=== PATIENT | female | born 2000 | race Caucasian/White ===

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

== ENCOUNTER 2023-01-06 07:36 | Inpatient (IN) ==
[2023-01-06] MEDS ORDERED: OXYTOCIN 30 UNITS/NSS 30 UNITS/500 ML BAG IV PRN ×3 (07:43→20:18)
[2023-01-06] MEDS ORDERED: LIDOCAINE 1% LOCAL 20 ML VIAL INFIL PRN (07:43)
[2023-01-06 08:26] LABS: Hematocrit (blood only) 38.4 % (37.0-47.0); Hemoglobin 12.9 g/dl (12.0-16.0); Mean Corpuscular Hemoglobin 28.6 pg (25.0-34.0); Mean Corpuscular Hgb Conc 33.6 g/dL (32.0-36.0); Mean Corpuscular Volume 85.1 fL (80.0-100.0); Mean Platelet Volume 9.5 fL (9.4-12.4); Platelet Count 250 K/uL (130-400); RDW Coefficient of Variation 13.3 % (11.5-14.5); RDW Standard Deviation 41.5 fL (36.4-46.3); Red Blood Count 4.51 M/uL (4.20-5.40); White Blood Count 12.66 K/ul (4.8-10.8)
[2023-01-06] MEDS: LACTATED RINGER'S 1,000 ML IV PRN ×3 (08:45→16:11)
--- NOTE | 2023-01-06 09:01 | History & Physical Report ---
"Date of Service January 06, 2023 Assessment & Plan (1) Encounter for induction of labor: Plan: pitocin arom when appropriate monitor tracing, currently cat 1 Admission and Anticipated Discharge Date Admission Date: January 06, 2023 History of Present Illness Chief Complaint: IOL Primary Care Provider: Fabi Sy DO 22 yo at 39w1d admitted for IOL for post-dates. Denies GOMES, CP, SOB, N/V/D, LE pain. GBS neg, RH-, Rhogam given, +fm, -ctx Allergies Allergy/AdvReac Type Severity Reaction Status Date / Time [facility] [[facility] AdvReac Intermediate Tachycardia Verified 01/05/23 10:20 Home Medications Medication Instructions Recorded Confirmed Type cholecalciferol (vitamin D3) 50 1,000 unit PO DAILY 03/21/22 01/05/23 History mcg (2,000 unit) capsule clindamycin phosphate 1 % topical 1 applic topical DAILY #50 grams 06/22/22 01/05/23 Rx foam ferrous sulfate 325 mg (65 mg 325 mg PO DAILY 07/15/22 01/05/23 History iron) tablet [id number] fum 28 mg 1 cap PO DAILY #90 caps 08/04/22 01/05/23 Rx iron-folic acid 1 mg-omg3 200 mg capsule lamotrigine 100 mg tablet 50 mg (1/2 x 100 mg) PO BID 30 08/05/22 01/05/23 Rx days #30 tabs albuterol sulfate 90 mcg/actuation 2 puff inhalation QID PRN 08/31/22 01/05/23 Rx aerosol inhaler (Ventolin HFA) shortness of breath or wheezing #6.7 grams citalopram 20 mg tablet 20 mg PO DAILY #90 tabs 12/20/22 01/05/23 Rx Patient History Medical History Ovarian cyst Depression Amenorrhea Migraine Vitamin D deficiency History of chicken pox Reactive airway disease Anxiety Surgical History No pertinent past surgical history Family History Mother Anxiety Depression Thyroid cancer Sister Depression Seizures Grandfather Prostate cancer Denies family history of Ovarian cancer Myocardial infarction Breast cancer Colorectal cancer Social History Smoking Status: Never smoker Second Hand Exposure: No; Do You Dip or Chew Tobacco: No; Hx Alcohol Use: No Hx Substance Use: No Preferred Language: Japanese Communication Ability: Effective Visual Impairment: No Limitations Hearing Ability: Normal Aircraft Electrical Systems Specialist Required: No Beliefs That Will Affect Care: None marital status: marital status details: Alex Ruff ( 20) [phone] Current Living Situation: Spouse Current Living Situation Comment: [facility] [place] current occupational status: employed current occupation: [employer] How many Children do You have: 0 Other Information That Helps Us Care for You: No Feels Safe at Home: Yes Safety Concerns: Feels Safe At This Time Childhood Exposure to Second-Hand Smoke: No Diet: regular caffeine: Yes during the past year weight has: increased > 10 lbs Dental Care, Regularly: Yes Physical Activity Frequency: Does not Exercise Seatbelt Use: always Sunscreen Use: Yes Assistive Devices: Glasses Review of Systems reviewed, per HPI Physical Exam Physical Exam: General: patient resting comfortably, NAD, non-toxic in appearance, answers questions appropriately. Skin: warm, dry, intact HEENT: NC/AT, anicteric sclera, conjunctiva without injection, moist mucus membranes Heart: +S1/S2, regular, no m/r/g Lungs: equal air entry bilaterally, no rales/rhonchi/wheezes Abd: +BS, soft, NT/ND, gravid uterus Cervical: 4|70|-2| Ext: warm, no clubbing/cyanosis or edema Neuro: speech intact, no facial droop, moving all extremities on command. : FHR baseline 135, moderate variability, accelerations present, decelerations absent Results & Data Vital Signs (Past 12 Hours) Vital Signs Temp Pulse Resp BP 01/06/23 07:45 18 01/06/23 07:45 36.6 C 18 01/06/23 07:44 102 H 124/60 Supervising Physician Co-Signing Physician Notes Resident Physician Supervision Note: I interviewed and examined the patient. Discussed with Dr. Seals and agree with findings and plan as documented in the note. Any exceptions or clarifications are listed here: [None] Documented By: Megan Peterson MD, FACOG Resident Activity Tracking Resident Involvement: Resident Care Provided Care Provided: Adult [facility] Medicine"
[2023-01-06] MEDS ORDERED: LIDOCAINE 2%/EPINEPHRINE 1:200,000 20 ML PF ONE (11:19)
[2023-01-06] MEDS ORDERED: BUPIVACAINE 0.25% PF 30 ML VIAL EPI STA (11:19)
[2023-01-06] MEDS ORDERED: BUPIVACAINE 0.25% PF 30 ML VIAL ONE (11:19)
[2023-01-06] MEDS ORDERED: NALBUPHINE HCL 5 MG in SYRINGE 0 ML IV PRN (11:19)
[2023-01-06] MEDS ORDERED: fentANYL 2 MCG/ML BUPIVacaine 0.125%-NSS 100ML BAG EPI PRN (11:19)
[2023-01-06] MEDS ORDERED: NALOXONE HCL 1 MG in SODIUM CHLORIDE 0.9% 1,000 ML IV PRN (11:19)
[2023-01-06] MEDS ORDERED: fentaNYL citrate PF 100 MCG/2 ML VIAL EPI PRN (11:19)
[2023-01-06] MEDS ORDERED: fentaNYL citrate PF 100 MCG/2 ML VIAL ONE (11:19)
[2023-01-06] MEDS ORDERED: ePHEDrine sulfate 50 MG/ML AMP ONE (11:19)
[2023-01-06] MEDS ORDERED: SODIUM CHLORIDE 0.9% PF INJ 10 ML VIAL ONE (11:19)
[2023-01-06] MEDS ORDERED: fentaNYL citrate PF 100 MCG/2 ML VIAL EPI STA (11:19)
[2023-01-06] MEDS ORDERED: LIDOCAINE 2%/EPINEPHRINE 1:200,000 20 ML PF EPI STA (11:19)
[2023-01-06] MEDS ORDERED: SODIUM CHLORIDE 0.9% PF INJ 10 ML VIAL EPI PRN (11:19)
[2023-01-06] MEDS ORDERED: ePHEDrine sulfate 50 MG/ML AMP IV PRN (11:19)
[2023-01-06] MEDS ORDERED: ROPIVACAINE 0.5% PF 5 MG/ML 20 ML VIAL EPI PRN (11:19)
[2023-01-06] MEDS ORDERED: BUPIVACAINE 0.25% PF 30 ML VIAL EPI PRN (11:19)
[2023-01-06] MEDS ORDERED: diphenhydrAMINE 50 MG/ML VIAL IV PRN (11:19)
[2023-01-06] MEDS ORDERED: SODIUM CHLORIDE 0.9% PF INJ 10 ML VIAL EPI STA (11:19)
[2023-01-06] MEDS ORDERED: fentANYL 2 MCG/ML BUPIVacaine 0.125%-NSS 100ML BAG ONE (11:19)
[2023-01-06] MEDS ORDERED: LIDOCAINE 2% MPF LOCAL 5 ML VIAL EPI PRN (11:19)
[2023-01-06] MEDS ORDERED: NALOXONE HCL 0.4 MG/1 ML VIAL/CARP IV PRN (11:19)
--- NOTE | 2023-01-06 11:21 | Anesthesiology Consultation ---
Date of Service January 06, 2023 Assessment & Plan (1) Encounter for pre-operative examination: Chart Review Chart Review: Patient NOT seen in Pre Admission Testing and Acceptable Risk for Labor Epidural Consults Requested none History Height/Weight Height: 5 ft 7 in Weight: 140.16 kg Allergies Allergy/AdvReac Type Severity Reaction Status Date / Time rizatriptan [From [facility]] AdvReac Intermediate Tachycardia Verified 01/05/23 10:20 Medications Home Medications Medication Instructions Recorded Confirmed Last Taken cholecalciferol (vitamin D3) 50 1,000 unit PO DAILY 03/21/22 01/06/23 01/06/23 06:00 mcg (2,000 unit) capsule clindamycin phosphate 1 % topical 1 applic topical DAILY #50 grams 06/22/22 01/06/23 01/05/23 22:00 foam ferrous sulfate 325 mg (65 mg 325 mg PO DAILY 07/15/22 01/06/23 01/06/23 06:00 iron) tablet [id number] fum 28 mg 1 cap PO DAILY #90 caps 08/04/22 01/06/23 01/06/23 06:00 iron-folic acid 1 mg-omg3 200 mg capsule lamotrigine 100 mg tablet 50 mg (1/2 x 100 mg) PO BID 30 08/05/22 01/06/23 01/06/23 06:00 days #30 tabs albuterol sulfate 90 mcg/actuation 2 puff inhalation QID PRN 08/31/22 01/06/23 11/04/22 aerosol inhaler (Ventolin HFA) shortness of breath or wheezing #6.7 grams citalopram 20 mg tablet 20 mg PO DAILY #90 tabs 12/20/22 01/06/23 01/06/23 06:00 Active Medications Generic Name Dose Route Start Last Admin Trade Name Freq PRN Reason Stop Dose Admin Oxytocin 30 units in 500 mls @ 6 mls/hr 01/06/23 07:44 01/06/23 10:44 Pitocin IV 01/08/23 07:43 0.36 units/hr .Q24H PRN 6 mls/hr Labor Induction/Augmentation Titration Protocol 0.36 UNITS/HR Lactated Ringer's 1,000 mls @ 125 mls/hr 01/06/23 07:43 01/06/23 11:12 Lr IV 01/08/23 07:42 999 mls/hr .Q8H PRN Infusion L&D Protocol Protocol Past Medical History Medical History Ovarian cyst Depression Amenorrhea Migraine Vitamin D deficiency History of chicken pox Reactive airway disease Anxiety Past Family History Family History Mother Anxiety Depression Thyroid cancer Sister Depression Seizures Grandfather Prostate cancer Denies family history of Ovarian cancer Myocardial infarction Breast cancer Colorectal cancer Past Surgical History Surgical History No pertinent past surgical history Social History Smoking Status: Never smoker Do You Dip or Chew Tobacco: No Hx Alcohol Use: No Hx Substance Use: No Physical Exam Vital Signs Last Vital Signs Temp 97.9 F 01/06/23 08:12 Pulse 86 01/06/23 11:10 Resp 18 01/06/23 10:00 BP 128/67 01/06/23 11:10 O2 Del Method Room Air 01/06/23 08:12 Testing Laboratory Results 01/06/23 08:06 Blood Type B Negative 01/06/23 08:06 Antibody Screen NEGATIVE 01/06/23 08:06
[2023-01-06] MEDS ORDERED: TERBUTALINE SULFATE 1 MG/ML VIAL ONE (12:20)
--- NOTE | 2023-01-06 12:37 | Labor Progress Brief Note ---
Date of Service January 06, 2023 Subjective CTSP by nursing, covering briefly for Dr. Mohan. patient had recent arom and epidural. Patient put back on the monitor after epidural at noon and decel started at 12:10. Nursing had already gone through position change, oxygen and position change by the time i got to the room. The baby was trying to recover by the time I returned to the room. Assessment & Plan (1) Encounter for induction of labor: Plan decel likely secondary to either epidural effect or potentially tachysystole. Has now resolved and reassuring. Plan expectant management for now. Admission and Anticipated Discharge Date Admission Date: January 06, 2023 Physical Exam Physical Exam: nursing checked and 6cm. toco--very difficult tracing secondary to body habitus. efm--Baseline was 130s, was having small accels, then deceled to probably 70-80 but difficult tracing gave terb now 130s with mod variability, small accel, mod variability Results & Data Vital Signs (Past 12 Hours) Vital Signs Temp Pulse Resp BP Pulse Ox O2 Del Method 01/06/23 12:29 86 119/61 01/06/23 12:28 91 H 100 01/06/23 12:27 86 112/59 L 01/06/23 12:25 80 108/55 L 01/06/23 12:23 100 01/06/23 12:23 85 01/06/23 12:23 81 115/62 01/06/23 12:21 84 118/67 01/06/23 12:18 81 120/66 01/06/23 12:17 85 98 01/06/23 12:16 89 84 L 01/06/23 12:15 100 H 188/135 H 01/06/23 12:12 82 96 01/06/23 12:11 75 101/58 L 01/06/23 12:10 82 92 01/06/23 12:09 80 104/62 01/06/23 12:07 99 01/06/23 12:07 79 01/06/23 12:07 77 115/53 L 01/06/23 12:05 81 104/58 L 01/06/23 12:03 77 93/60 L 01/06/23 12:02 80 99 01/06/23 12:00 81 101/56 L 01/06/23 11:59 83 01/06/23 11:59 90 101/51 L 86 L 01/06/23 11:57 87 94 01/06/23 11:53 86 92 01/06/23 11:52 86 96 01/06/23 11:51 85 110/51 L 01/06/23 11:49 91 H 126/59 L 01/06/23 11:47 99 01/06/23 11:47 108 H 01/06/23 11:47 100 H 140/63 92 01/06/23 11:45 96 H 155/73 H 01/06/23 11:43 109 H 149/79 H 01/06/23 11:42 123 H 97 01/06/23 11:41 108 H 150/79 H 01/06/23 11:40 104 H 91 01/06/23 11:39 116 H 145/85 H 01/06/23 11:37 100 01/06/23 11:37 112 H 01/06/23 11:37 111 H 142/87 H 01/06/23 11:35 100 H 139/79 01/06/23 11:32 101 H 89 L 01/06/23 11:25 87 136/77 01/06/23 11:10 86 128/67 01/06/23 10:56 82 132/65 01/06/23 10:41 88 123/64 01/06/23 10:35 91 H 119/65 01/06/23 10:12 93 H 127/68 01/06/23 10:00 18 01/06/23 10:00 18 01/06/23 09:26 97 H 136/74 01/06/23 08:12 36.6 C 18 Room Air 01/06/23 07:45 18 01/06/23 07:45 36.6 C 18 01/06/23 07:44 102 H 124/60 Coding Level of Care Code None Diagnoses Encounter for induction of labor Z34.90
[2023-01-06] MEDS ORDERED: ALBUTEROL HFA 8 GM INHALER INH PRN (20:16)
[2023-01-06] MEDS ORDERED: DIPHTHERIA/TETANUS/PERTUSSIS Vaccine (Tdap, Age 7+yrs) 0.5mL SYR/VL IM ONE (20:18)
[2023-01-06] MEDS ORDERED: HYDROCORTISONE ACETATE 25 MG SUPP PR PRN (20:18)
[2023-01-06] MEDS ORDERED: BENZOCAINE 20% SPRY 85 APPLN/85 GM CAN EXT PRN (20:18)
[2023-01-06] MEDS ORDERED: oxyCODONE/ACETAMINOPHEN 5mg/325mg TAB PO PRN (20:18)
[2023-01-06] MEDS ORDERED: bisacodyL 10 MG SUPP PR PRN (20:18)
--- NOTE | 2023-01-06 20:24 | Delivery Summary ---
Vaginal Delivery Summary Date of Service January 06, 2023 Vaginal Delivery Summary and 2nd Degree LAC Patient is a 22-year-old 1 P0 female with an EDC of 01/12/2023 who presents for elective induction of labor for obesity at 39+ weeks. Pitocin induction was begun per protocol and membranes were then ruptured for clear fluid. She received effective epidural analgesia. She progressed to full dilation with the urge to push. She pushed effectively over intact perineum for delivery of a viable female . There was a loose nuchal cord which reduced spontaneously after delivery of the head. The rest the delivered easily and was placed on the mother's abdomen for further attention and drying. The cord was somewhat short but we were able to wait 1 minute before clamping and cutting the cord. The was vigorous after initial stimulation. After cor d blood was obtained the placenta was expressed intact with a three-vessel cord. bleeding was controlled with dilute Pitocin and fundal massage. A second-degree perineal laceration was repaired with 3-0 chromic in the usual fashion. Estimated blood loss is 200 cc. Mother and were doing well after delivery. [facility] Vaginal Delivery Charge Delivery Type Details: and 2nd Degree LAC
--- NOTE | 2023-01-06 21:22 | Anesthesia Procedure Note ---
Date of Service January 06, 2023 Anesthesia Post Epidural Note Vital Signs Vital Signs: Temp Pulse Resp BP Pulse Ox O2 Del Method 98.2 F 85 20 114/57 L 94 Room Air 01/06/23 17:30 01/06/23 21:15 01/06/23 18:30 01/06/23 21:15 01/06/23 19:27 01/06/23 08:12 Notes Mental Status: alert / awake / arousable and participated in evaluation Nausea / Vomiting: adequately controlled Pain: adequately controlled Airway Patency, RR, SpO2: stable & adequate BP & HR: stable & adequate Hydration State: stable & adequate Neuraxial Anesthesia: was administered and sensory block is resolving Anesthetic Complications: no major complications apparent and Pt Satisfied with anesthetic care Epidural: Removed without complications and With tip intact
[2023-01-06] MEDS: IBUPROFEN 600 MG TAB PO PRN (21:23)
[2023-01-07] MEDS: DOCUSATE SODIUM 100 MG CAP PO SCH ×3 (00:08→20:13)
[2023-01-07] MEDS: lamoTRIgine 25 MG TAB PO SCH ×3 (00:08→20:18)
[2023-01-07] MEDS: IBUPROFEN 600 MG TAB PO PRN ×4 (04:50→18:30)
[2023-01-07 06:13] LABS: Hematocrit (blood only) 33.4 % (37.0-47.0); Hemoglobin 11.3 g/dl (12.0-16.0); Mean Corpuscular Hemoglobin 29.3 pg (25.0-34.0); Mean Corpuscular Hgb Conc 33.8 g/dL (32.0-36.0); Mean Corpuscular Volume 86.5 fL (80.0-100.0); Mean Platelet Volume 9.7 fL (9.4-12.4); Platelet Count 213 K/uL (130-400); RDW Coefficient of Variation 13.5 % (11.5-14.5); RDW Standard Deviation 42.1 fL (36.4-46.3); Red Blood Count 3.86 M/uL (4.20-5.40); White Blood Count 14.12 K/ul (4.8-10.8)
--- NOTE | 2023-01-07 06:46 | Obstetrical Progress Note ---
Date of Service January 07, 2023 Assessment & Plan (1) care following vaginal delivery: Plan Doing well Encourage ambulation Pain control Dc tomorrow Admission and Anticipated Discharge Date Admission Date: January 06, 2023 Supervising Physician Co-Signing Physician Notes Resident Physician Supervision Note: I interviewed and examined the patient. Discussed with Dr. Seals and agree with findings and plan as documented in the note. Any exceptions or clarifications are listed here: [None] Documented By: Megan Peterson MD, FACOG Subjective 22 yo post day 1 s/p Ambulation: ambulating normally Voiding: no voiding problems Passing Gas:: Yes Diet Tolerance:: regular diet Lochia:: Small Feeding Type:: breast feeding Current Pain Level: moderate Resting comfortably this AM in NAD. Denies GOMES, CP, SOB, N/V/D, LE pain/swelling. Review of Systems Review of Systems: reviewed, per HPI Physical Exam Physical Exam: General: patient resting comfortably, NAD, non-toxic in appearance, answers questions appropriately. Skin: warm, dry, intact HEENT: NC/AT, anicteric sclera, conjunctiva without injection, moist mucus membranes. Heart: +S1/S2, regular, no m/r/g Lungs: equal air entry bilaterally, no rales/rhonchi/wheezes Abd: +BS, soft, NT/ND, uterine fundus firm at umbilicus Ext: warm, no clubbing/cyanosis or edema, Danny's neg. Neuro: speech intact, no facial droop, moving all extremities on command. Results & Data Vital Signs (Past 12 Hours) Vital Signs Temp Pulse Pulse Resp BP BP Pulse Ox 01/07/23 04:40 36.7 C 106 H 18 135/74 99 01/07/23 01:30 36.6 C 94 H 20 103/65 98 01/06/23 22:46 117 H 103/49 L 01/06/23 22:30 118/55 L 01/06/23 22:15 100 H 125/61 01/06/23 22:00 99 H 127/61 01/06/23 21:45 104 H 127/59 L 01/06/23 21:30 103 H 117/56 L 01/06/23 21:15 85 114/57 L 01/06/23 21:00 101 H 118/66 01/06/23 20:45 93 H 115/58 L 01/06/23 20:30 90 120/60 01/06/23 20:15 94 H 126/67 01/06/23 20:00 93 H 128/63 01/06/23 19:47 100 H 131/62 01/06/23 19:46 107 H 166/118 H 01/06/23 19:27 146 H 94 01/06/23 19:25 95 H 100 01/06/23 19:22 107 H 86 L 01/06/23 19:20 107 H 98 01/06/23 19:16 110 H 145/64 H 89 L 01/06/23 19:15 96 H 99 01/06/23 19:10 100 H 100 01/06/23 19:09 108 H 93 01/06/23 19:05 97 H 99 01/06/23 19:01 95 H 131/82 01/06/23 19:00 86 99 01/06/23 18:55 96 H 99 01/06/23 18:50 94 H 97 01/06/23 18:46 88 144/80 H 01/06/23 18:45 90 100 O2 Del Method 01/07/23 04:40 Room Air 01/07/23 01:30 Room Air 01/06/23 22:46 01/06/23 22:30 01/06/23 22:15 01/06/23 22:00 01/06/23 21:45 01/06/23 21:30 01/06/23 21:15 01/06/23 21:00 01/06/23 20:45 01/06/23 20:30 01/06/23 20:15 01/06/23 20:00 01/06/23 19:47 01/06/23 19:46 01/06/23 19:27 01/06/23 19:25 01/06/23 19:22 01/06/23 19:20 01/06/23 19:16 01/06/23 19:15 01/06/23 19:10 01/06/23 19:09 01/06/23 19:05 01/06/23 19:01 01/06/23 19:00 01/06/23 18:55 01/06/23 18:50 01/06/23 18:46 01/06/23 18:45 Resident Activity Tracking Resident Involvement: Resident Care Provided Care Provided: Adult Hospital Medicine
[2023-01-07] MEDS: ACETAMINOPHEN 325 MG TAB PO PRN ×3 (07:27→21:26)
[2023-01-07] MEDS: PRENATAL VITAMIN 1 TAB PO SCH (09:21)
[2023-01-07] MEDS: CITALOPRAM 20 MG TAB PO SCH (09:22)
--- NOTE | 2023-01-07 18:59 | Obstetrical Progress Note ---
Date of Service January 07, 2023 Subjective Patient feels well. Have following blood pressures over the day today and running in the 150s/90s. She is currently asymptomatic. Results & Data Vital Signs (Past 12 Hours) Vital Signs Temp Pulse Pulse Resp BP BP Pulse Ox 01/07/23 16:00 37.2 C 98 H 16 110/71 98 01/07/23 13:02 36.7 C 106 H 16 109/7 L 97 01/07/23 11:01 36.7 C 111 H 18 128/92 97 01/07/23 09:05 36.7 C 105 H 18 116/61 98 01/07/23 07:30 36.5 C 97 H 16 128/79 98 O2 Del Method 01/07/23 16:00 Room Air 01/07/23 13:02 Room Air 01/07/23 11:01 01/07/23 09:05 Room Air 01/07/23 07:30 Room Air
[2023-01-07] MEDS ORDERED: bisacodyL 5 MG TABEC PO SCH (20:00)
[2023-01-08] MEDS: IBUPROFEN 600 MG TAB PO PRN ×2 (00:12→07:46)
[2023-01-08 06:29] LABS: Hematocrit (blood only) 31.9 % (37.0-47.0); Hemoglobin 10.8 g/dl (12.0-16.0)
[2023-01-08] MEDS: DOCUSATE SODIUM 100 MG CAP PO SCH (07:46)
[2023-01-08] MEDS: PRENATAL VITAMIN 1 TAB PO SCH (07:46)
--- NOTE | 2023-01-08 08:03 | Obstetrical Progress Note ---
Date of Service January 08, 2023 Assessment & Plan (1) care following vaginal delivery: Plan Doing well. Plan d/c today. Instructions reviewed. f/u 6 weeks. Subjective Ambulation: ambulating normally Voiding: no voiding problems Passing Gas:: Yes Diet Tolerance:: regular diet Lochia:: Small Feeding Type:: breast feeding Physical Exam Constitutional WD/WN, vitals as above Cardiovascular Extremities: no calf tenderness and no edema Gastrointestinal (Abdomen) ff/nt at u Psychiatric A+Ox3, euthymic affect Results & Data Vital Signs (Past 12 Hours) Vital Signs Temp Pulse Resp BP Pulse Ox O2 Del Method 01/08/23 03:44 104 H 18 128/80 98 Room Air 01/08/23 00:15 36.4 C L 94 H 18 100/63 97 Room Air 01/07/23 20:10 36.6 C 114 H 20 116/79 98 Room Air
[2023-01-08] MEDS: lamoTRIgine 25 MG TAB PO SCH (08:22)
[2023-01-08] MEDS: CITALOPRAM 20 MG TAB PO SCH (08:22)
[2023-01-08] MEDS: ACETAMINOPHEN 325 MG TAB PO PRN (09:47)
== END 2023-01-08 10:50 | disposition home or self-care (01) | DRG 807 ==
LOC: 4S1 07:36 → 4E1 01-07 01:06